=== PATIENT | female | born 1975 | race Asian ===

== ENCOUNTER 2017-01-17 07:56 | Emergency (ER) | payer BC ==
[~2017-01-17] VITALS: Ht 152.4 cm; Wt 51.9 kg
[2017-01-17] MEDS ORDERED: SODIUM CHLORIDE 0.9% 1,000 ML IV ONE (09:28)
[2017-01-17] MEDS ORDERED: SODIUM CHLORIDE FLUSH 10ML SYR IVF ONE (09:30)
[2017-01-17 09:52] LABS: HEMOGLOBIN 15.9 g/dL (11.7-16.4); WHITE BLOOD COUNT 7.3 x10^3/uL (3.4-10)
[2017-01-17] MEDS ORDERED: ENAL2.5T PO (09:55)
[2017-01-17] MEDS ORDERED: LEVO88TA4 PO (09:55)
[2017-01-17] MEDS ORDERED: OMEP-110 PO (09:55)
[2017-01-17] MEDS ORDERED: CANA300T PO (09:55)
[2017-01-17] MEDS ORDERED: ROSU5TAB PO (09:55)
[2017-01-17 10:04] LABS: BLOOD UREA NITROGEN 11 mg/dL (7-18)
[2017-01-17 10:11] LABS: ASPARTATE AMINO TRANSFERASE 25 U/L (15-37)
[2017-01-17 10:13] LABS: IS PT STATUS REG ER OR PRE ER? YES
[2017-01-17 11:26] VITALS: BP 118/71
== END 2017-01-17 11:32 | disposition home or self-care (01) ==
LOC: ED 09:51
DX: M94.0 Chondrocostal junction syndrome [Tietze] (principal); R51 Headache; E11.9 Type 2 diabetes mellitus without complications
CPT/HCPCS: 36415; 70450; 71010; 80053; 84484; 84703; 85025; 85379; 93005; 96360; 96361; 99285; J7030

== ENCOUNTER → 2018-05-30 | Outpatient (CLI) | payer BC ==
[~2018-05-30] MED LIST: CANA300T PO; ENAL2.5T PO; GADOBUTROL 7.5 MMOL/7.5 ML VIAL ONE; GLUCAGON 1 MG ONE; LEVO88TA4 PO; OMEP-110 PO; ROSU5TAB PO
== END | disposition home or self-care (01) ==
LOC: CFH 08:31
PROVIDERS: ATTEND Internal Medicine Gastroenterology
DX: N88.8 Other specified noninflammatory disorders of cervix uteri (principal); E11.9 Type 2 diabetes mellitus without complications; I10 Essential (primary) hypertension; E03.9 Hypothyroidism, unspecified
CPT/HCPCS: 72197; 74183; 82565; A9585; J1610